=== PATIENT | male | born 1985 | race Caucasian/White ===

== ENCOUNTER 2017-11-02 16:51 | Emergency (ER) | payer SELFPAY ==
[~2017-11-02] VITALS: Ht 175.3 cm; Wt 77.1 kg
[2017-11-02 16:59] VITALS: Ht 175.3 cm; Wt 77.1 kg
[2017-11-02 18:25] VITALS: BP 121/70
== END 2017-11-02 18:25 | disposition home or self-care (01) ==
LOC: ED 16:51
DX: S61.210A Laceration without foreign body of right index finger without damage to nail, initial encounter (principal); X58.XXXA Exposure to other specified factors, initial encounter; Y93.89 Activity, other specified; Y92.89 Other specified places as the place of occurrence of the external cause; Y99.8 Other external cause status
CPT/HCPCS: 90715

== ENCOUNTER 2019-03-20 18:12 | Emergency (ER) | payer MEDICAID ==
[~2019-03-20] VITALS: Ht 175.3 cm; Wt 78.5 kg
[2019-03-20 18:16] VITALS: Ht 175.3 cm; Wt 78.5 kg
[2019-03-20 20:36] LABS: BASOPHIL % 0.4 % (0-2); PLATELET COUNT 242 x10^3mcL (130-400); RED CELL DISTRIBUTION WIDTH 13.8 % (11.5-14.5)
[2019-03-20 20:49] LABS: CALCIUM 8.2 mg/dL (8.5-10.1); CARBON DIOXIDE 29.6 mmol/L (21-32); CHLORIDE SERUM 102 mmol/L (98-107); CREATININE SERUM 1.1 mg/dL (0.7-1.3); GFR1 > 60 mL/min; GLUCOSE SERUM 88 mg/dL (74-106); POTASSIUM SERUM 3.7 mmol/L (3.5-5.1); SODIUM SERUM 141 mmol/L (136-145)
[2019-03-20 20:53] LABS: ALBUMIN 3.6 g/dL (3.4-5.0); ALKALINE PHOSPHATASE 62 U/L (46-116); ALT/SGPT 22 U/L (16-63); AST/SGOT 17 U/L (15-37); BILIRUBIN TOTAL 0.4 mg/dL (0.20-1.00); LIPASE 121 IU/L (73-393); TOTAL PROTEIN, SERUM 6.9 g/dL (6.4-8.2)
[2019-03-21 01:50] VITALS: BP 103/55
== END 2019-03-21 01:50 | disposition home or self-care (01) ==
LOC: ED 18:12
PROVIDERS: Emergency Medicine
DX: R10.32 Left lower quadrant pain (principal); R11.10 Vomiting, unspecified; R50.9 Fever, unspecified
CPT/HCPCS: J2405; J7030